=== PATIENT | female | born 1950 | race Caucasian/White ===

== ENCOUNTER 2018-01-10 10:31 | Inpatient (IN) | payer OTHER ==
[~2018-01-10 10:31] MED LIST: PROPOFOL 1000 MG INJ
[2018-01-10] MEDS ORDERED: PROPOFOL 20 ML ×2 (12:34→16:04)
[2018-01-10] MEDS ORDERED: DEXAMETHASONE 4 MG/ML 1 ML INJ (12:34)
[2018-01-10] MEDS ORDERED: ROCURONIUM 50 MG INJ ×2 (12:34→16:16)
[2018-01-10] MEDS ORDERED: FENTAnyl 50 MCG/ML VIAL (12:34)
[2018-01-10] MEDS ORDERED: ONDANSETRON 4 MG INJ (12:34)
[2018-01-10] MEDS ORDERED: GLYCOPYRROLATE 0.4 MG INJ (12:34)
[2018-01-10] MEDS ORDERED: CEFAZOLIN 1 GM INJ (12:34)
[2018-01-10] MEDS ORDERED: MIDAZOLAM 1 MG/ML 2 ML INJ (12:34)
[2018-01-10] MEDS ORDERED: NEOSTIGMINE 3 MG/3 ML SYRINGE ×2 (12:34→16:16)
[2018-01-10] MEDS ORDERED: ROPIVACAINE 0.5 % 30 ML VIAL (13:14)
[2018-01-10] MEDS ORDERED: BUPIVACAINE 0.75%/DEXT (SPINAL) 2 ML INJ (13:54)
[2018-01-10] MEDS ORDERED: HYDROmorphONE (0.2 MG/ML) 10ML SYG IV ×2 (14:00)
[2018-01-10] MEDS ORDERED: EPHEDrine SULFATE 50 MG/5 ML SYG IV (14:00)
[2018-01-10] MEDS ORDERED: OXYCODONE/ACETAMINOPHEN (5/325) TAB PO ×2 (14:00)
[2018-01-10] MEDS ORDERED: TRIMETHOBENZAMIDE 100 MG/ML VIAL IM ×2 (14:00→17:30)
[2018-01-10] MEDS ORDERED: MIDAZOLAM 1 MG/ML 2 ML INJ IV (14:00)
[2018-01-10] MEDS ORDERED: FENTAnyl 50 MCG/ML VIAL IV ×3 (14:00)
[2018-01-10] MEDS ORDERED: DIPHENHYDRAMINE 50 MG INJ IV ×2 (14:00→17:30)
[2018-01-10] MEDS ORDERED: hydrALAzine 20 MG INJ IV (14:00)
[2018-01-10] MEDS ORDERED: ONDANSETRON 4 MG INJ IV (14:00)
[2018-01-10] MEDS ORDERED: ALBUTEROL 0.083% (NEB) 2.5 MG/3 ML AMP HHN (14:00)
[2018-01-10] MEDS ORDERED: LABETALOL HCL 20MG INJ IV (14:00)
[2018-01-10] MEDS ORDERED: MEPERIDINE 25 MG INJ IV (14:00)
[2018-01-10] MEDS ORDERED: IPRATROPIUM (NEB) 0.5 MG/2.5 ML AMP HHN (14:00)
[2018-01-10] MEDS: BACITRACIN 50000 UNITS INJ (15:36)
[2018-01-10] MEDS: POLYMYXIN B 500000 UNIT INJ (15:37)
[2018-01-10] MEDS ORDERED: NACL 0.9% 3 ML SYG IV (16:30)
[2018-01-10] MEDS ORDERED: GLUCAGON 1 MG INJ IM (17:00)
[2018-01-10] MEDS ORDERED: GLUCOSE GEL 15 GRAM TUBE PO ×2 (17:00)
[2018-01-10] MEDS ORDERED: GLUCOSE GEL 15 GRAM TUBE BUCCAL (17:00)
[2018-01-10] MEDS ORDERED: DEXTROSE 50% 50 ML SYRINGE IV ×2 (17:00)
[2018-01-10] MEDS: SOD CHLORIDE 0.9% 1,000 ML IV (17:15)
[2018-01-10] MEDS ORDERED: oxyCODONE 5 MG TAB PO (17:30)
[2018-01-10] MEDS ORDERED: BETHANECHOL 25 MG TAB PO (17:30)
[2018-01-10] MEDS ORDERED: NALOXONE (0.4 MG/ML) INJ IV (17:30)
[2018-01-10] MEDS ORDERED: MAGNESIUM HYDROXIDE 30ML CUP PO (17:30)
[2018-01-10] MEDS ORDERED: BISACODYL 10 MG SUPP PR (17:30)
[2018-01-10] MEDS ORDERED: ZOLPIDEM 5 MG TAB PO (17:30)
[2018-01-10] MEDS ORDERED: NA PHOSPHATE/BIPHOS 133 ML ENEMA PR (17:30)
[2018-01-10] MEDS: CEFAZOLIN 2 GM/50 ML (PMX) 50 ML (FOR WT < 120 KG) IVPB ×2 (17:35→17:48)
[2018-01-10] MEDS: ASPIRIN (EC) 325 MG TAB PO (17:36)
[2018-01-10] MEDS: ONDANSETRON 4 MG INJ IV (17:36)
[2018-01-10] MEDS: DOCUSATE SODIUM 100 MG CAP PO (17:36)
[2018-01-10] MEDS: TRANEXAMIC ACID 1,000 MG in D5W 100 ML AT CLOSURE X1 IVPB (17:40)
[2018-01-10] MEDS: HYDROmorphONE (0.2 MG/ML) 10ML SYG IV (17:40)
[2018-01-10] MEDS: TRANEXAMIC ACID 1,000 MG in D5W 100 ML AT INCISION X1 IVPB (17:41)
[2018-01-10] MEDS ORDERED: CEFAZOLIN 1 GM/50 ML (PMX) 50 ML IVPB (17:47)
[2018-01-10] MEDS: CEFAZOLIN 1 GM/50 ML (PMX) 50 ML IVPB (17:48)
[2018-01-10] MEDS: INSULIN ASPART [NOVOLOG] 3 ML PEN SC ×2 (18:00→21:49)
[2018-01-10] MEDS: GABAPENTIN 100 MG CAP PO (21:00)
[2018-01-10] MEDS: oxyCODONE 5 MG TAB PO (21:42)
[2018-01-10] MEDS: INSULIN GLARGINE [LANtus] 3 ML PEN SC (21:49)
[2018-01-11] MEDS: ONDANSETRON 4 MG INJ IV ×3 (01:33→11:30)
[2018-01-11] MEDS: CEFAZOLIN 1 GM/50 ML (PMX) 50 ML IVPB ×4 (01:36→09:45)
[2018-01-11] MEDS: SOD CHLORIDE 0.9% 1,000 ML IV ×2 (01:38→15:21)
[2018-01-11] MEDS: ACCU-CHEK XX ×2 (02:00→21:52)
[2018-01-11 05:28] LABS: ADD MAN DIFF? NO
[2018-01-11 05:37] LABS: BASOPHILS % 0.1 % (0.0-2.0); HEMOGLOBIN 11.6 g/dl (12.0-16.0); LYMPHOCYTES % 11.7 % (15.0-51.0); MEAN CORPUSCULAR HGB CONC 33.1 g/dl (32.0-37.0); MEAN CORPUSCULAR VOLUME 93.6 fl (82.0-101.0); MEAN PLATELET VOLUME 10.7 fl (7.4-10.4); MONOCYTE # 0.3 10^3/ul (0.3-0.9); MONOCYTES % 3.8 % (0.0-11.0); NEUTROPHIL # 6.9 10^3/ul (1.6-7.5); PLATELET COUNT 210 10^3/UL (140-415); RED BLOOD COUNT 3.74 10^6/ul (4.20-5.40); RED CELL DISTRIBUTION WIDTH 12.2 % (11.5-14.5)
[2018-01-11 05:37] LABS: WHITE BLOOD COUNT 8.2 10^3/ul (4.8-10.8)
[2018-01-11 06:50] LABS: ANION GAP 17 (8-16); BLOOD UREA NITROGEN 10 mg/dl (7-20); CARBON DIOXIDE 26 mmol/L (21-31); CHLORIDE 103 mmol/L (97-110); CREATININE 0.56 mg/dl (0.44-1.00); GLUCOSE 236 mg/dl (70-220); SODIUM 141 mmol/L (135-144)
[2018-01-11 06:52] LABS: POTASSIUM 5.1 mmol/L (3.5-5.1)
[2018-01-11] MEDS: GABAPENTIN 100 MG CAP PO ×2 (09:44→20:17)
[2018-01-11] MEDS: DOCUSATE SODIUM 100 MG CAP PO ×2 (09:44→20:17)
[2018-01-11] MEDS: FERROUS FUMARATE (SR) TAB PO ×2 (09:44→20:17)
[2018-01-11] MEDS: ASPIRIN (EC) 325 MG TAB PO (09:44)
[2018-01-11] MEDS: INSULIN ASPART [NOVOLOG] 3 ML PEN SC ×4 (09:51→20:31)
[2018-01-11] MEDS: ENOXAPARIN 30 MG/0.3 ML SYG SC (09:52)
[2018-01-11] MEDS: oxyCODONE 5 MG TAB PO ×5 (11:20→23:19)
[2018-01-11] MEDS: CELECOXIB 100 MG CAP PO ×2 (11:20→20:17)
[2018-01-11] MEDS: SENNA/DOCUSATE NA (8.6MG/50MG) TAB PO (17:31)
[2018-01-11] MEDS: KETOROLAC 15 MG INJ IV (19:27)
[2018-01-11] MEDS: INSULIN GLARGINE [LANtus] 3 ML PEN SC (20:22)
[2018-01-12] MEDS: oxyCODONE 5 MG TAB PO ×5 (03:54→20:20)
[2018-01-12 05:13] LABS: ADD MAN DIFF? NO
[2018-01-12 05:18] LABS: BASOPHILS % 0.4 % (0.0-2.0); EOSINOPHILS # 0.1 10^3/ul (0.0-0.5); EOSINOPHILS % 1.3 % (0.0-7.0); HEMATOCRIT 31.4 % (37.0-47.0); HEMOGLOBIN 10.5 g/dl (12.0-16.0); LYMPHOCYTES # 2.5 10^3/ul (0.8-2.9); LYMPHOCYTES % 35.7 % (15.0-51.0); MEAN CORPUSCULAR HEMOGLOBIN 31.5 pg (29.0-33.0); MEAN CORPUSCULAR HGB CONC 33.4 g/dl (32.0-37.0); MEAN CORPUSCULAR VOLUME 94.3 fl (82.0-101.0); MEAN PLATELET VOLUME 10.5 fl (7.4-10.4); MONOCYTE # 0.5 10^3/ul (0.3-0.9); MONOCYTES % 7.6 % (0.0-11.0); NEUTROPHIL # 3.9 10^3/ul (1.6-7.5); NEUTROPHILS % 54.9 % (39.0-77.0); PLATELET COUNT 194 10^3/UL (140-415); RED BLOOD COUNT 3.33 10^6/ul (4.20-5.40); RED CELL DISTRIBUTION WIDTH 12.5 % (11.5-14.5)
[2018-01-12 05:18] LABS: WHITE BLOOD COUNT 7.1 10^3/ul (4.8-10.8)
[2018-01-12 05:46] LABS: ANION GAP 12 (8-16); BLOOD UREA NITROGEN 13 mg/dl (7-20); CALCIUM 8.4 mg/dl (8.4-10.2); CARBON DIOXIDE 28 mmol/L (21-31); CHLORIDE 105 mmol/L (97-110); CREATININE 0.78 mg/dl (0.44-1.00); GLUCOSE 187 mg/dl (70-220); POTASSIUM 4.9 mmol/L (3.5-5.1); SODIUM 140 mmol/L (135-144)
[2018-01-12] MEDS: PANTOPRAZOLE (EC) 40 MG TAB PO (06:06)
[2018-01-12] MEDS: SOD CHLORIDE 0.9% 1,000 ML IV (06:45)
[2018-01-12] MEDS: FERROUS FUMARATE (SR) TAB PO (08:39)
[2018-01-12] MEDS: GABAPENTIN 100 MG CAP PO ×2 (08:39→20:20)
[2018-01-12] MEDS: DOCUSATE SODIUM 100 MG CAP PO ×2 (08:39→20:20)
[2018-01-12] MEDS: CELECOXIB 100 MG CAP PO (08:39)
[2018-01-12] MEDS: ASPIRIN (EC) 325 MG TAB PO (08:39)
[2018-01-12] MEDS: INSULIN ASPART [NOVOLOG] 3 ML PEN SC ×4 (08:42→20:24)
[2018-01-12] MEDS: ENOXAPARIN 30 MG/0.3 ML SYG SC (08:42)
[2018-01-12] MEDS: INSULIN GLARGINE [LANtus] 3 ML PEN SC (20:22)
[2018-01-12] MEDS: KETOROLAC 15 MG INJ IV (22:08)
[2018-01-13] MEDS: oxyCODONE 5 MG TAB PO ×4 (00:32→11:23)
[2018-01-13] MEDS: ACCU-CHEK XX (02:00)
[2018-01-13] MEDS: PANTOPRAZOLE (EC) 40 MG TAB PO (04:38)
[2018-01-13 04:57] LABS: ADD MAN DIFF? NO
[2018-01-13 05:02] LABS: BASOPHILS % 0.4 % (0.0-2.0); EOSINOPHILS # 0.1 10^3/ul (0.0-0.5); EOSINOPHILS % 0.9 % (0.0-7.0); HEMATOCRIT 32.1 % (37.0-47.0); HEMOGLOBIN 10.6 g/dl (12.0-16.0); LYMPHOCYTES # 2.4 10^3/ul (0.8-2.9); LYMPHOCYTES % 30.6 % (15.0-51.0); MEAN CORPUSCULAR HEMOGLOBIN 31.4 pg (29.0-33.0); MONOCYTE # 0.7 10^3/ul (0.3-0.9); MONOCYTES % 8.7 % (0.0-11.0); NEUTROPHIL # 4.7 10^3/ul (1.6-7.5); NEUTROPHILS % 58.9 % (39.0-77.0); PLATELET COUNT 185 10^3/UL (140-415); RED BLOOD COUNT 3.38 10^6/ul (4.20-5.40); RED CELL DISTRIBUTION WIDTH 12.4 % (11.5-14.5)
[2018-01-13 05:02] LABS: WHITE BLOOD COUNT 7.9 10^3/ul (4.8-10.8)
[2018-01-13 05:18] LABS: ANION GAP 13 (8-16); BLOOD UREA NITROGEN 11 mg/dl (7-20); CALCIUM 8.4 mg/dl (8.4-10.2); CARBON DIOXIDE 28 mmol/L (21-31); CHLORIDE 102 mmol/L (97-110); CREATININE 0.65 mg/dl (0.44-1.00); GLUCOSE 149 mg/dl (70-220); POTASSIUM 4.4 mmol/L (3.5-5.1); SODIUM 139 mmol/L (135-144)
[2018-01-13] MEDS: DOCUSATE SODIUM 100 MG CAP PO (08:42)
[2018-01-13] MEDS: ASPIRIN (EC) 325 MG TAB PO (08:43)
[2018-01-13] MEDS: GABAPENTIN 100 MG CAP PO (08:43)
[2018-01-13] MEDS: ENOXAPARIN 30 MG/0.3 ML SYG SC (08:57)
[2018-01-13] MEDS: INSULIN ASPART [NOVOLOG] 3 ML PEN SC (08:57)
== END 2018-01-13 12:50 | disposition home health service (06) | DRG 470 ==
LOC: REC 10:31 → MS1 18:45
PROVIDERS: Orthopaedic Surgery
PROC: 0SRD069 Replacement of Left Knee Joint with Oxidized Zirconium on Polyethylene Synthetic Substitute, Cemented, Open Approach (ICD-10-PCS; principal; 2018-01-10 14:32)
DX: M17.12 Unilateral primary osteoarthritis, left knee (principal); E11.9 Type 2 diabetes mellitus without complications; Z79.84 Long term (current) use of oral hypoglycemic drugs
CPT/HCPCS: 73560; 80048; 82962; 85025; 86850; 86900; 86901; 87081; 88304; 88311; 97110; 97116; 97161; 97165; 97530